=== PATIENT | male | born 1990 | race Caucasian/White ===

== ENCOUNTER 2016-09-18 05:00 | Emergency (ER) | payer SELFPAY ==
[2016-09-18 05:08] VITALS: TEMP 98.8
[2016-09-18] MEDS ORDERED: MORPHINE SULFATE 4 MG/ML SYRINGE IV STA (05:24)
[2016-09-18] MEDS ORDERED: ETOMIDATE 2 MG/ML 10 ML VIAL IVP STA (05:24)
--- NOTE | 2016-09-18 05:26 | ED ---
General Adult HPI - General Chief complaint: Extremity Injury, Upper Stated complaint: Shoulder Injury Time Seen by Provider: 09/18/16 05:16 Source: patient, RN notes reviewed Mode of arrival: ambulatory Limitations: no limitations - History of Present Illness Initial comments: Patient is a pleasant 25-year-old male presenting to the emergency department complaining of right shoulder discomfort. Patient states he has had shoulder dislocation 3-4 times on the right side previously. Patient states he was laying in bed with his arm over his head and his shoulder popped out. Patient complains of discomfort of the right shoulder. No other area of injury or concern. - Related Data Home Medications Medication Instructions Recorded Confirmed No Known Home Medications [No 09/18/16 09/18/16 Known Home Medications] Allergies Allergy/AdvReac Type Severity Reaction Status Date / Time No Known Allergies Allergy Verified 06/17/16 12:00 Review of Systems ROS Statement: Those systems with pertinent positive or pertinent negative responses have been documented in the HPI. ROS Other: All systems not noted in ROS Statement are negative. Constitutional: Denies: fever Eyes: Denies: eye pain ENT: Denies: ear pain Respiratory: Denies: cough Cardiovascular: Denies: chest pain Endocrine: Denies: fatigue Gastrointestinal: Denies: abdominal pain Genitourinary: Denies: dysuria Musculoskeletal: Reports: arthralgia. Denies: back pain Skin: Denies: rash Neurological: Denies: weakness Past Medical History Past Medical History: No Reported History History of Any Multi-Drug Resistant Organisms: None Reported Past Surgical History: Appendectomy Past Psychological History: No Psychological Hx Reported Smoking Status: Current every day smoker Past Alcohol Use History: Occasional Past Drug Use History: Marijuana General Exam Limitations: no limitations General appearance: alert, in no apparent distress Head exam: Present: atraumatic Eye exam: Present: normal appearance, PERRL ENT exam: Present: normal oropharynx Neck exam: Present: normal inspection Respiratory exam: Present: normal lung sounds bilaterally Cardiovascular Exam: Present: regular rate, normal rhythm GI/Abdominal exam: Present: soft. Absent: tenderness Extremities exam: Present: tenderness (Right shoulder with anterior fullness. Distally extremity is neurovascularly intact) Neurological exam: Present: alert. Absent: motor sensory deficit Psychiatric exam: Present: normal affect, normal mood Skin exam: Absent: rash Course Vital Signs 09/18/16 09/18/16 09/18/16 05:04 05:35 05:39 Temperature 98.8 F Pulse Rate 61 78 68 Respiratory 18 16 16 Rate Blood Pressure 107/56 127/72 115/67 O2 Sat by Pulse 99 98 99 Oximetry 09/18/16 09/18/16 09/18/16 05:43 05:45 05:50 Temperature Pulse Rate 73 59 L 66 Respiratory 16 16 16 Rate Blood Pressure 111/60 123/69 123/69 O2 Sat by Pulse 99 100 97 Oximetry 09/18/16 05:56 Temperature Pulse Rate 68 Respiratory 16 Rate Blood Pressure 115/61 O2 Sat by Pulse 98 Oximetry Procedures - Orthopedic Joint Reduction Joint #1 Consent Obtained: verbal consent, written consent Time Out Performed: Yes Side: right Joint Reduction Location: shoulder Analgesia: procedural sedation Technique Used: traction/counter-traction Post-Reduction Neuro Exam: intact Post-Reduction Vascular Exam: intact Post Reduction X-Ray Obtained: Yes Post Reduction X-Ray Results: reduced Patient Tolerated Procedure: well - Procedural Sedation Procedural Sedation Start Time: 05:35 Procedural Sedation Stop Time: 05:55 Indications: fracture/dislocation reduction ASA Class: I Mallampati Airway Score: 1 Preparation: trains service conductor applied, pulse oximeter, capnometry used, supplemental O2 applied IV Etomidate Dose (mgs): 14 Complications: none Patient Tolerated Procedure: well, no complications Medical Decision Making - Medical Decision Making Patient reexamined and alert and appropriate. Patient updated on results and need for follow-up. - Radiology Data Radiology results: image reviewed (X-ray the shoulder shows anterior inferior dislocation.) Disposition Clinical Impression: Shoulder dislocation, recurrent Disposition: HOME SELF-CARE Condition: Stable Instructions: Shoulder Dislocation (ED) Additional Instructions: Please follow-up with orthopedics in the next couple of days for recheck. Use sling. [id number] Motrin if needed. Ice to affected area. Needed. Return for shoulder dislocation, pain, worsening symptoms or other concerns. Referrals: Bety Gomez DO [Primary Care Provider] - 1-2 days Chichi Carroll DO [Doctor of Osteopathic Medicine] - 1-2 days
[2016-09-18 05:36] VITALS: RESP 16
[2016-09-18 05:58] VITALS: BP 115/61; PULSE 68
--- NOTE | 2016-09-18 06:52 | XR ---
EXAMINATION TYPE: XR shoulder limited RT DATE OF EXAM: 09/18/2016 5:18 AM COMPARISON: 06/17/2016 HISTORY: Shoulder pain TECHNIQUE: 2 views FINDINGS: There is an anterior dislocation of the humeral head. There is no fracture seen. IMPRESSION: Anterior dislocation of the shoulder joint.
--- NOTE | 2016-09-18 06:53 | XR ---
EXAMINATION TYPE: XR shoulder limited RT DATE OF EXAM: 09/18/2016 5:47 AM COMPARISON: Today HISTORY: Shoulder pain TECHNIQUE: Single view FINDINGS: There is anatomic reduction of the shoulder joint. I see no fracture line. IMPRESSION: Satisfactory reduction of the shoulder joint.
== END 2016-09-18 06:22 | disposition home or self-care (01) ==
LOC: EC 05:00
DX: M24.411 Recurrent dislocation, right shoulder (principal); F17.200 Nicotine dependence, unspecified, uncomplicated
CPT/HCPCS: 99283; 99152; 96374; 23650; 73020; J2270